=== PATIENT | female | born 1970 | race African-American/Black ===

== ENCOUNTER 2016-02-25 21:43 | Emergency (ER) | payer OTHER ==
[2016-02-25] MEDS ORDERED: DIAZEPAM 5 MG TAB ONE (23:31)
[2016-02-25] MEDS ORDERED: KETOROLAC 60 MG/2 ML VIAL IM ONE (23:31)
== END 2016-02-26 00:36 | disposition home or self-care (01) ==
LOC: ER 21:43
DX: M54.5 Low back pain (principal); M51.36 Other intervertebral disc degeneration, lumbar region; M48.06 Spinal stenosis, lumbar region; M48.08 Spinal stenosis, sacral and sacrococcygeal region
CPT/HCPCS: 96372